=== PATIENT | female | born 1980 | race Caucasian/White ===

== ENCOUNTER 2016-08-14 16:09 | Emergency (ER) | payer BC, OTHER ==
[2016-08-14] MEDS ORDERED: ASPIRIN 81 MG TABLET, CHEWABLE PO ONE (16:20)
--- NOTE | 2016-08-14 16:21 | ER Document Report ---
ED Medical Screen (RME) - General Chief Complaint: Palpitations Stated Complaint: LIGHTHEADED,SOB Time Seen by Provider: 08/14/16 16:20 - HPI Notes: 08/14/16 16:21 Palpitations shortness of breath just prior to arrival multiple episodes throughout the week - Related Data Allergies/Adverse Reactions: No Known Allergies Allergy (Verified 08/14/16 16:17) Past Medical History - Social History Chew tobacco use (# tins/day): No Frequency of alcohol use: None Drug Abuse: None - Past Medical History Cardiac Medical History: Reports: Hx Hypercholesterolemia Renal/ Medical History: Denies: Hx Peritoneal Dialysis Surgical Hx: Negative - Immunizations Hx Diphtheria, Pertussis, Tetanus Vaccination: Yes Review of Systems - Review of Systems Cardiovascular: Palpitations, Lightheaded Physical Exam - Vital signs Vitals: Temp Pulse Resp BP Pulse Ox 98.8 F 100 17 150/87 H 99 08/14/16 16:14 08/14/16 16:14 08/14/16 16:14 08/14/16 16:14 08/14/16 16:14 - Cardiovascular Rhythm: Regular, Tachycardia Course - Vital Signs Vital signs: Temp Pulse Resp BP Pulse Ox 98.8 F 100 17 150/87 H 99 08/14/16 16:14 08/14/16 16:14 08/14/16 16:14 08/14/16 16:14 08/14/16 16:14
--- NOTE | 2016-08-14 16:45 | ER Document Report ---
ED General - General Chief Complaint: Palpitations Stated Complaint: LIGHTHEADED,SOB Time Seen by Provider: 08/14/16 16:20 Notes: The patient is a 35-year-old female, past medical history hypercholesterolemia, on OCPs, presents after a brief episode of feeling lightheaded as she was driving today. She has never had this in the past. In addition, she is having difficulty catching her breath. She denies leg swelling, fevers, chest pain, syncope, currently feeling like her heart is racing, nausea, vomiting, back pain or rash. - Related Data Allergies/Adverse Reactions: No Known Allergies Allergy (Verified 08/14/16 16:17) Past Medical History - General Information source: Patient - Social History Smoking Status: Never Smoker Chew tobacco use (# tins/day): No Frequency of alcohol use: None Drug Abuse: None Family History: Reviewed & Not Pertinent - Past Medical History Cardiac Medical History: Reports: Hx Hypercholesterolemia Renal/ Medical History: Denies: Hx Peritoneal Dialysis Surgical Hx: Negative - Immunizations Hx Diphtheria, Pertussis, Tetanus Vaccination: Yes Review of Systems - Review of Systems Notes: REVIEW OF SYSTEMS: CONSTITUTIONAL: -fevers, -chills EENT: -eye pain, -difficulty swallowing, -nasal congestion CARDIOVASCULAR:-chest pain, -syncope, +palpitations RESPIRATORY: -cough, +SOB GASTROINTESTINAL: -abdominal pain, - nausea, -vomiting, -diarrhea GENITOURINARY: -dysuria, -hematuria MUSCULOSKELETAL: -back pain, -neck pain SKIN: -rash or skin lesions. HEMATOLOGIC: -easy bruising or bleeding. LYMPHATIC: -swollen, enlarged glands. NEUROLOGICAL: -altered mental status or loss of consciousness, -headache, - neurologic symptoms, +lightheadedness PSYCHIATRIC: -anxiety, -depression. ALL OTHER SYSTEMS REVIEWED AND NEGATIVE. Physical Exam - Vital signs Vitals: Temp Pulse Resp BP Pulse Ox 98.8 F 100 17 150/87 H 99 08/14/16 16:14 08/14/16 16:14 08/14/16 16:14 08/14/16 16:14 08/14/16 16:14 - Notes Notes: PHYSICAL EXAMINATION: GENERAL: Well-appearing, well-nourished and in no acute distress. HEAD: Atraumatic, normocephalic. EYES: Pupils equal round and reactive to light, extraocular movements intact, sclera anicteric, conjunctiva are normal. ENT: nares patent, oropharynx clear without exudates. Moist mucous membranes. NECK: Normal range of motion, supple without lymphadenopathy LUNGS: Breath sounds clear to auscultation bilaterally and equal. No wheezes rales or rhonchi. HEART: Regular rate and rhythm without murmurs. No murmurs. ABDOMEN: Soft, nontender, normoactive bowel sounds. No guarding, no rebound. No masses appreciated. EXTREMITIES: Normal range of motion, no pitting or edema. No cyanosis. NEUROLOGICAL: Cranial nerves grossly intact. Normal speech, normal gait. Normal sensory, motor, and reflex exams. PSYCH: Normal mood, normal affect. SKIN: Warm, Dry, normal turgor, no rashes or lesions noted. Course - Re-evaluation Re-evalutation: Patient has low risk for PE, but cannot PERC out due to OCP use and initial tachycardia on arrival. Will send d-dimer. EKG does not show any evidence of arrhythmias, WPW, Brugada syndrome or prolonged QT syndrome. 08/14/16 20:04 CTA does not show any evidence of a PE. She would have a few seconds of sinus tachycardia up to the 110s in the ER that would resolve quickly without any intervention. Labs are unremarkable. Thyroid studies pending, but patient will call for results tomorrow and follow-up with her primary care physician this week. Also instructed her to follow-up with the [facility] for possible echo and Holter monitor to assess the causes of these intermittent palpitations. Answered all questions and patient is comfortable with plan. Given strict return precautions and she understands. - Vital Signs Vital signs: Temp Pulse Resp BP Pulse Ox 98.8 F 81 16 129/89 H 100 08/14/16 16:14 08/14/16 17:03 08/14/16 17:03 08/14/16 17:03 08/14/16 17:03 - Laboratory Result Diagrams: 08/14/16 16:40 08/14/16 16:40 Laboratory results interpreted by me: 08/14/16 08/14/16 08/14/16 16:40 16:40 16:40 D-Dimer 1.06 H Creatine Kinase 211 H Urine Blood SMALL H Ur Leukocyte Esterase TRACE H - Diagnostic Test Radiology reviewed: Image reviewed, Reports reviewed Radiology results interpreted by me: CTA: No PE. - EKG Interpretation by Me EKG shows normal: Sinus rhythm, [place], Intervals, QRS Complexes, ST-T Waves Rate: Normal Discharge - Discharge Clinical Impression: Heart palpitations Condition: Stable Disposition: HOME, SELF-CARE Additional Instructions: The CAT scan looking at your heart does not show any evidence of a pulmonary embolism. You must follow-up with the [facility] for further evaluation and treatment. Return to the ER if you have worsening symptoms or any other concerns. Palpitations (Irregular/Rapid Heartrate) Irregular or rapid heartbeat is called "palpitation." To diagnose the cause of palpitation, we have to "catch it in the act" with an EKG. Sinus Tachycardia: This is a rapid (but NORMAL) rhythm that can be due to fever, pain, anxiety, lack of sleep, over-exertion, or drugs. Cold medications, caffeine, and diet pills are particularly likely to cause tachycardia. Usually , all that's required is rest, reassurance, and avoiding caffeine, alcohol, nicotine, and unnecessary medicines. Paroxysmal Atrial Tachycardia (PAT): This abnormally rapid heartbeat is caused by a "short circuit" in the electrical system of the heart. It is not dangerous, unless other heart disease is present. These attacks of PAT may occur occasionally for years. Medication is available for treatment. Paroxysmal Atrial Fibrillation or Atrial Flutter: This is irregular electrical activity in the upper heart chamber. These abnormal rhythms often occur with valve disease or in hearts damaged by hardening of the arteries. These rhythms usually require further testing, for example a cardiac echo. Premature Beats: Extra beats occur more commonly after caffeine, nicotine , alcohol, cold pills, diet pills. Emotional stress or fatigue also provoke them. Extra beats are only dangerous when heart disease is present. They usually need no treatment. If they're frequent, or if evidence of heart disease develops, medication can be given to suppress them. If we were unable to "catch" the palpitations on EKG, you should try to get an EKG immediately if the symptoms begin again. Contact the physician at once if you develop persistent lightheadedness, shortness of breath, chest pain , or swelling of the ankles. Referrals: NKECHI NG MD [Primary Care Provider] - Follow up as needed STEVEN TYSON MD [ACTIVE STAFF] - Follow up as needed
[2016-08-14 17:07] LABS: ABSOLUTE BASOPHILS # (AUTO) 0.1 10^3/uL (0.0-0.2); ABSOLUTE EOSINOPHILS # (AUTO) 0.1 10^3/uL (0.0-0.6); ABSOLUTE LYMPHOCYTES (AUTO) 2.4 10^3/uL (0.5-4.7); ABSOLUTE MONOCYTES (AUTO) 0.4 10^3/uL (0.1-1.4); ABSOLUTE NEUT (AUTO) 4.3 10^3/uL (1.7-8.2); BASOPHILS % (AUTO) 0.9 % (0-2); EOSINOPHILS % (AUTO) 1.3 % (0-6); HEMATOCRIT 37.8 % (36.0-47.0); HEMOGLOBIN 13.1 g/dL (12.0-15.5); HGB HCT DIFFERENCE 1.5; LYMPHOCYTES % (AUTO) 32.6 % (13-45); MEAN CORPUSCULAR HGB CONC 34.7 g/dL (32.0-36.0); MEAN CORPUSCULAR VOLUME 86 fl (80-97); MONOCYTES % (AUTO) 6.1 % (3-13); RED BLOOD COUNT 4.38 10^6/uL (3.72-5.28); RED CELL DISTRIBUTION WIDTH 13.5 % (11.5-14.0); SEGMENTED NEUTROPHILS % (AUTO) 59.1 % (42-78); WHITE BLOOD COUNT 7.3 10^3/uL (4.0-10.5)
[2016-08-14 17:26] LABS: APPEARANCE,URINE CLEAR; BILIRUBIN,URINE NEGATIVE (NEGATIVE); GLUCOSE, URINE NEGATIVE (NEGATIVE); KETONES,URINE NEGATIVE (NEGATIVE); LEUKOCYTE ESTERASE,URINE TRACE (NEGATIVE); NITRITE,URINE NEGATIVE (NEGATIVE); PROTEIN,URINE NEGATIVE (NEGATIVE); URINE SPECIFIC GRAVITY 1.003; UROBILINOGEN,URINE NEGATIVE mg/dL (<2.0)
[2016-08-14 17:30] LABS: ALANINE AMINOTRANSFERASE 29 U/L (9-52); ALBUMIN 3.8 g/dL (3.5-5.0); ALKALINE PHOSPHATASE 64 U/L (38-126); ANION GAP 10 (5-19); ASPARTATE AMINO TRANSFERASE 20 U/L (14-36); BILIRUBIN,DIRECT 0.3 mg/dL (0.0-0.4); BILIRUBIN,TOTAL 0.5 mg/dL (0.2-1.3); BLOOD UREA NITROGEN 10 mg/dL (7-20); CALCIUM 9.3 mg/dL (8.4-10.2); CARBON DIOXIDE 28 mmol/L (22-30); CHLORIDE 105 mmol/L (98-107); CREATINE KINASE 211 U/L (30-135); CREATININE RESULT 0.77 mg/dL (0.52-1.25); GLUCOSE 105 mg/dL (75-110); SODIUM 143.4 mmol/L (137-145); TOTAL PROTEIN 7.3 g/dL (6.3-8.2)
[2016-08-14] MEDS ORDERED: ASPIRIN 81 MG TABLET, CHEWABLE ONE (19:26)
[2016-08-14 20:28] VITALS: BP 123/83
[2016-08-14 21:16] LABS: FREE T3 3.64 pg/mL (2.77-5.27)
[2016-08-14 21:30] LABS: THYROID STIMULATING HORMONE 3.51 uIU/mL (0.47-4.68)
--- NOTE | 2016-08-14 22:41 | EKG REPORT ---
SEVERITY:- NORMAL ECG - SINUS RHYTHM : Confirmed by: Estrella Rubi 14-Aug-2016 22:40:53
== END 2016-08-14 20:28 | disposition home or self-care (01) ==
LOC: ER 16:09
DX: R00.2 Palpitations (principal); R42 Dizziness and giddiness; R06.02 Shortness of breath; R00.0 Tachycardia, unspecified; Z79.3 Long term (current) use of hormonal contraceptives
CPT/HCPCS: 36415; 71020; 71275; 80053; 81001; 82550; 83735; 84439; 84443; 84481; 84484; 84703; 85025; 85379; 93005; 93010; 99285